=== PATIENT | male | born 1960 | race Two or more races ===

== ENCOUNTER 2021-08-24 07:23 | Day surgery (SDC) | payer OTHER ==
[~2021-08-24] VITALS: Ht 175.3 cm; Wt 102.1 kg
[~2021-08-24 07:23] MED LIST: COZAAR25 MG PO
[2021-08-24] MEDS ORDERED: MIRALAX17 GM PO (09:43)
[2021-08-24] MEDS ORDERED: ULTRAM50 MG PO (09:43)
[2021-08-24] MEDS ORDERED: TYLENOL ARTHRI650 MG PO (09:43)
[2021-08-24] MEDS ORDERED: NEURONTIN300 MG PO (09:43)
== END 2021-08-24 14:35 | disposition home or self-care (01) ==
LOC: CIR.AMB 07:23
PROVIDERS: ATTEND Surgery
DX: K80.10 Calculus of gallbladder with chronic cholecystitis without obstruction (principal); K82.8 Other specified diseases of gallbladder; K76.0 Fatty (change of) liver, not elsewhere classified; I10 Essential (primary) hypertension